=== PATIENT | female | born 1965 | race African-American/Black ===

== ENCOUNTER 2024-03-03 03:42 | Emergency (ER) | payer BC, SELFPAY ==
--- NOTE | ~2024-03-03 | XR_ITS ---
EXAMINATION: XR FOOT, LEFT CLINICAL INFORMATION: Pain. COMPARISON: None available. TECHNIQUE: AP, lateral, and oblique views of the left foot. FINDINGS: The bones and soft tissues are normal. No fracture. Alignment is anatomic. Joint spaces are maintained. XR/XR foot LT 2V IMPRESSION: No significant abnormality identified. Electronically signed by: Elpidio Gautam MD 03/03/2024 06:51 AM EDT RP
--- NOTE | ~2024-03-03 | XR_ITS ---
EXAMINATION: XR ANKLE, LEFT CLINICAL INFORMATION: Pain. COMPARISON: None available. TECHNIQUE: Two views of the left ankle. FINDINGS: No fracture. Alignment is anatomic. No erosions. Joint spaces are maintained. There is arteriovascular calcification. The soft tissues are otherwise unremarkable. XR/XR ankle LT 2V IMPRESSION: No significant abnormality is seen. Electronically signed by: Elpidio Gautam MD 03/03/2024 06:31 AM EDT
[2024-03-03 03:50] VITALS: BP 143/75; PULSE 90; RESP 18; TEMP 36.7; O2SAT 98; BMI 29.5
[2024-03-03 06:09] VITALS: BP 154/70; PULSE 94; RESP 16; TEMP 36.7; O2SAT 95
--- NOTE | 2024-03-03 06:16 | PC.NURSE ---
called into room, pt asking, how much longer, and if her xrays results are back yet. Explained, there was only one doctor, and he would be into see her as soon as possible.
--- NOTE | 2024-03-03 06:20 | ED.LOWEXIN ---
HPI - Extremity Injury (Lower) General Chief Complaint: Extremity Injury, Lower Stated Complaint: can't put pressure on the left foot Time Seen by Provider: 03/03/24 06:17 Source: patient and family Mode of arrival: ambulatory Limitations: no limitations History of Present Illness ED Provider: Dr. Frank HPI Narrative: Patient is a 58yo with CVA, HTN, DM, CAD who presents with left foot pain after walking all day at the [place]. Patient denies trauma, states she could not even put he foot on the floor tonight. Related Data Previous Rx's ?Medication ?Instructions ?Recorded naproxen 500 mg tablet (Naprosyn) 500 mg PO BID #20 tabs 03/03/24 Allergies Allergy/AdvReac Type Severity Reaction Status Date / Time No Known Allergies Allergy Verified 03/03/24 03:52 Review of Systems Review of Systems: Yes all other systems are reviewed and are negative Neurologic: Denies Sensory deficit (Neuro) [facility] Social History Social History Smoked in Last 30 Days: Yes Use of substances other than those prescribed or required for medical reasons: No Advance Directives: No Advance Directives Information Provided: Yes Do you have a plan to hurt others: No Plan Physical Exam Vital Signs: Vital Signs: Last Vital Signs Temp 98.1 F 03/03/24 06:09 Pulse 94 03/03/24 06:09 Resp 16 03/03/24 06:09 BP 154/70 H 03/03/24 06:09 Pulse Ox 95 03/03/24 06:09 O2 Del Method Room Air 03/03/24 06:09 BMI result Body Mass Index 29.5 Const: General: healthy appearing Nutritional Appearance: average body habitus Orientation/consciousness: oriented to person and patient oriented x3 Limitations: no limitations HEENT: Head: Yes normal to inspection Ears: external ears normal General nose exam: Normal external nose present Mouth: Normal oral and palatal mucosa present and oropharynx normal Throat: Yes posterior oropharynx normal Eyes: General: appearance normal, both eyes and all related structures Neck: Other: supple Neck: Yes normal visual inspection Chest: Chest palpation & inspection: normal inspection of the chest Resp: Auscultation: clear to auscultation bilaterally Cardio: Jugular venous distension: no JVD Rate: regular rate Rhythm: regular rhythm Heart sounds: S1 normal heart sound present and S2 normal heart sound present GI: Inspection: Yes normal to inspection Palpation (GI): Soft to palpation, nontender and No hepatosplenomegaly present Auscultation: normal bowel sounds : General: Yes no CVA tenderness Back/Spine/Pelvis: Back: no CVA tenderness Skin: General skin exam: no rashes or lesions noted Neuro: General: oriented to person and patient oriented x3 Cranial nerves: Yes CN's II-XII intact bilaterally Motor exam (neuro): 5/5 motor strength present throughout Sensory Exam: No Sensory deficit (Neuro) Extrem: Other: left foot with no erythema, good DP pulse, severe plantar tenderness, no ankle tenderness, no great toe pain General: Yes normal to inspection Psych: Appearance: grossly normal Course Reevaluation(s) Reevaluation #1: patient with plantar fascitis, no evidence of infection or gout, will treat with NSAIDs Time: 06:30 Medications Administered Discontinued Medications Generic Name Dose Route Start Last Admin Trade Name Freq PRN Reason Stop Dose Admin Ketorolac Tromethamine 60 mg 03/03/24 06:25 03/03/24 06:31 Ketorolac Tromethamine 60 Mg/2 Ml Vial IM 03/03/24 06:26 60 mg ONCE ONE Administration Medical Decision Making Differential Diagnosis Differential Diagnoses: The differential diagnosis associated with the presentation includes (cellulitis, gout, fracture, ischemia, plantar fascitis) Independent Interpretation I performed an independent interpretation of an: Plain X-Ray (ankle: no fracture foot: no fracture) Independent Historian Clinical information obtained from an independent historian. History obtained from or confirmed by: Friend Chronic Conditions Patient?s care impacted by: Diabetes and Hypertension Discharge Plan Discharge Clinical Impression: Plantar fasciitis Patient Disposition: Home, Self-Care Instructions: Plantar Fasciitis (ED), Plantar Fasciitis Exercises (ED) Prescriptions: New naproxen [Naprosyn] 500 mg tablet 500 mg PO BID Qty: 20 0RF Referrals: Marisela Melendrez MD [Primary Care Provider] - 1 week Print Language: Slovak
[2024-03-03] MEDS: Ketorolac Tromethamine 60 MG/2 ML VIAL IM (06:31)
--- NOTE | 2024-03-03 06:37 | PC.NURSE ---
pt requests crutches, states I can't walk informed the MD
[2024-03-03 06:57] VITALS: BP 154/70; PULSE 94; RESP 16; TEMP 36.7; O2SAT 95
== END 2024-03-03 06:58 | disposition home or self-care (01) ==
PROVIDERS: Emergency Provider Emergency Medicine; PCP Internal Medicine
DX: M72.2 Plantar fascial fibromatosis (principal); M79.672 Pain in left foot; I10 Essential (primary) hypertension; E11.9 Type 2 diabetes mellitus without complications; I25.10 Atherosclerotic heart disease of native coronary artery without angina pectoris
CPT/HCPCS: 73600; 73620; 96372; 99284; J1885